=== PATIENT | male | born 1985 | race Two or more races ===

== ENCOUNTER 2023-12-16 16:02 | Inpatient (IN) | payer MEDICAID, OTHER ==
[~2023-12-16] VITALS: Ht 165.1 cm; Wt 73.0 kg
[2023-12-16 18:00] LABS: Basophils # (auto) 0 10 ^3/uL (0-0.2); Basophils % (auto) 0.2 % (0.0-2.0); Eosinophils # (auto) 0.1 10 ^3/uL (0-0.8); Eosinophils % (auto) 0.6 % (0.0-7.0); Hematocrit 42.8 % (41.0-53.0); Hemoglobin 14.8 g/dL (13.5-17.5); Lymphocytes # (auto) 1.5 10 ^3/uL (0.4-5.4); Lymphocytes % (auto) 13.6 % (10.0-50.0); Mean Corpuscular Hemoglobin 30.4 pg (28.0-32.0); Mean Corpuscular Hgb Conc. 34.5 g/dL (32.0-36.0); Mean Corpuscular Volume 87.9 fL (80.0-100.0); Monocytes # (auto) 0.9 10 ^3/uL (0-1.3); Monocytes % (auto) 7.9 % (0.0-12.0); Neutrophils # (auto) 8.7 10 ^3/uL (1.6-8.6); Neutrophils % (auto) 77.7 % (37.0-80.0); Red Blood Cells 4.87 10^6/uL (4.5-5.90); White Blood Cell 11.1 10^3/uL (4.4-10.8)
[2023-12-16 18:10] LABS: Carbon Dioxide 27 mmol/L (20-30)
[2023-12-16 18:11] LABS: Calcium 9.3 mg/dL (8.7-10.4)
[2023-12-16 18:15] LABS: Glucose 89 mg/dL (74-106)
[2023-12-16 18:16] LABS: BUN/Creatinine Ratio 9.2 (10.0-20.0); Blood Urea Nitrogen 10 mg/dL (9-23)
[2023-12-16 18:52] LABS: Anion Gap 4 (5-15); Chloride 106 mmol/L (98-107); Potassium 4.1 mmol/L (3.5-5.1); Sodium 137 mmol/L (136-145)
[2023-12-16] MEDS: METOCLOPRAMIDE HCL 5MG/ml INJ 2ml VIAL IV ONE (19:15)
[2023-12-16] MEDS: SODIUM CHLORIDE 0.9% 1,000 ML IV ONE (20:10)
[2023-12-16] MEDS: KETOROLAC TROMETH 30 MG/ML 1ML VIAL IV ONE (20:12)
[2023-12-16] MEDS ORDERED: ACETAMINOPHEN 325 MG TAB PO PRN (20:30)
[2023-12-16] MEDS ORDERED: ONDANSETRON HCL 4 MG/2 ML VIAL IV PRN (20:30)
[2023-12-16] MEDS: LACTATED RINGER'S 1,000 ML IV ONE (20:30)
[2023-12-16] MEDS ORDERED: DOCUSATE SOD 100 MG CAP PO PRN (20:30)
[2023-12-16] MEDS ORDERED: HYDROmorphone HCL 2 MG/ML VL/or syr IV PRN (20:30)
[2023-12-16] MEDS: SODIUM CHLOR 0.9% PF (SALINE LOCK) 10ML VIAL/SYR IV SCH (22:00)
[2023-12-17 03:32] VITALS: RESP 15; O2SAT 96
[2023-12-17 07:32] VITALS: PULSE 78; RESP 15; O2SAT 95
[2023-12-17] MEDS: ENOXAPARIN SOD 40 MG/0.4 ML SYRINGE SC SCH (12:03)
[2023-12-17 13:11] VITALS: BP 116/73; PULSE 66; RESP 15; O2SAT 99
== END 2023-12-17 13:11 | disposition home or self-care (01) | DRG 422 ==
LOC: ER 16:02 → EDBD 16:02 → TELE 20:22 → EDBD 20:22 → UNDODEPER 12-17 13:15
PROVIDERS: ADMIT Internal Medicine; ATTEND Internal Medicine
DX: E86.0 Dehydration (principal); G43.909 Migraine, unspecified, not intractable, without status migrainosus; H11.003 Unspecified pterygium of eye, bilateral
CPT/HCPCS: 36415; 70450; 71045; 80048; 84484; 85025; 93005; 93306; 93886; G0378; J1885